=== PATIENT | male | born 1930 | race African-American/Black ===

== ENCOUNTER 2017-04-15 14:51 | Emergency (ER) | payer OTHER ==
[~2017-04-15] VITALS: Ht 167.6 cm; Wt 60.0 kg
[~2017-04-15 14:51] MED LIST: CYCL5TAB PO; DARV PO; DIABETES PILL; [UNRECOGNIZED DRUG - OTHER]
[2017-04-15 14:54] VITALS: BP 172/86; PULSE 88; RESP 12; TEMP 98.3; O2SAT 100
[2017-04-15 16:43] VITALS: BP 183/104; PULSE 92; RESP 20; O2SAT 98
[2017-04-15] MEDS ORDERED: TIMO0.255 EACH EYE (17:27)
[2017-04-15] MEDS ORDERED: GLIM2TAB PO (17:27)
[2017-04-15] MEDS ORDERED: LATA.005%O EACH EYE (17:27)
[2017-04-15] MEDS ORDERED: METF500T PO (17:27)
[2017-04-15] MEDS ORDERED: NORV2.5T PO (17:27)
[2017-04-15] MEDS ORDERED: BENI40TA29 PO (17:27)
[2017-04-15] MEDS ORDERED: ALLO100T PO (17:27)
[2017-04-15 17:53] LABS: BILIRUBIN, URINE NEG (NEG); BLOOD, URINE SMALL (NEG); GLUCOSE,URINE NEG (NEG); KETONE, URINE NEG (NEG); NITRITE,URINE NEG (NEG); PH, URINE 7.5 (5.0-8.5); URINE COLOR LIGHT-YELLOW (YELLW/STRAW); URINE LEUKOCYTE ESTERASE NEG (NEG)
[2017-04-15 17:58] LABS: PROTHROMBIN TIME - PATIENT 10.2 SEC (9.8-11.6)
[2017-04-15 18:02] LABS: AUTOMATED NEUTROPHIL # 2.1 TH/MM3 (1.8-7.7); BASOPHIL % 0.4 % (0.0-2.0); EOSINOPHIL # 0.2 TH/MM3 (0-0.4); EOSINOPHIL % 4.4 % (0.0-4.0); HEMATOCRIT 37.4 % (39.0-51.0); HEMOGLOBIN 12.3 GM/DL (13.0-17.0); LYMPH % 23.9 % (9.0-44.0); LYMPHOCYTE # 0.8 TH/MM3 (1.0-4.8); MEAN CELL VOLUME 93.1 FL (80.0-100.0); MEAN CORPUSCULAR HEMOGLOBIN 30.5 PG (27.0-34.0); MEAN CORPUSCULAR HGB CONC 32.8 % (32.0-36.0); MEAN PLATELET VOLUME 9.4 FL (7.0-11.0); MONO % 12.7 % (0.0-8.0); MONOCYTE # 0.4 TH/MM3 (0-0.9); NEUT % 58.6 % (16.0-70.0); PLATELET COUNT 183 TH/MM3 (150-450); RED BLOOD COUNT 4.02 MIL/MM3 (4.50-5.90); RED CELL DISTRIBUTION WIDTH 14.4 % (11.6-17.2); WHITE BLOOD COUNT 3.5 TH/MM3 (4.0-11.0)
--- NOTE | 2017-04-15 18:06 | PD ---
HPI Chief Complaint: Abnormal Results Time Seen by Provider: 16:33 Travel History International Travel<30 days: No Contact w/Intl Traveler<30days: No Traveled to known affect area: No History of Present Illness HPI 87-year-old male that presents to the ED for evaluation of abnormal results. Per patient he was told that his doctor told him that he had abnormal labs. Per patient something to do with his kidney. Per patient he doesn't remember the name of his doctor and he doesn't know what specifically was wrong. Per patient he was told to come here. The patient had blood work done this week. Denies any urinary or bowel movement issues. No chest pain or shortness of breath. No abdominal pain. No other medical issues. Patient for the most part is about historian. He states that he just had some routine blood work. He denies any other medical issues. History is limited because of the patient' s poor history. PFSH Past Medical History Arthritis: No Asthma: No Blood Disorders: No Anxiety: No Depression: No Heart Rhythm Problems: No Cancer: No High Cholesterol: Yes Chest Pain: No Congestive Heart Failure: No COPD: No Cerebrovascular Accident: No Diabetes: Yes Patient Takes Glucophage: Yes Diminished Hearing: No GERD: No Glaucoma: No Headaches: No Hepatitis: No Hiatal Hernia: No Hypertension: No Kidney Stones: No Myocardial Infarction: No Renal Failure: No Seizures: No Sickle Cell Disease: No Sleep Apnea: No Thyroid Disease: No Ulcer: No Tetanus Vaccination: Unknown Influenza Vaccination: No Past Surgical History Abdominal Surgery: Yes AICD: No Appendectomy: Yes Cardiac Surgery: Yes Ear Surgery: No Endocrine Surgery: No Eye Surgery: No Genitourinary Surgery: Yes Gynecologic Surgery: Yes Oral Surgery: No Pacemaker: No Thoracic Surgery: Yes Other Surgery: Yes Social History Alcohol Use: No Tobacco Use: No Substance Use: No Allergies-Medications (Allergen,Severity, Reaction): Coded Allergies: No Known Allergies (Verified Allergy, Severe, 04/15/17) Reported Meds & Prescriptions Reported Meds & Active Scripts Active Reported Timoptic Opth Drops (Timolol Opth Drops) 0.25 % Soln 1 Drop EACH EYE DAILY Xalatan Opth Drops (Latanoprost) 0.005% Drops 1 Drop EACH EYE HS Benicar (Olmesartan) 40 Mg Tab 40 Mg PO DAILY Metformin (Metformin HCl) 500 Mg Tab 500 Mg PO DAILY With a meal Glimepiride 2 Mg Tab 2 Mg PO DAILY Take with breakfast or first main meal Allopurinol 100 Mg Tab 100 Mg PO DAILY Norvasc (Amlodipine Besylate) 2.5 Mg Tab 2.5 Mg PO DAILY Review of Systems ROS Limitations: Poor Historian Except as stated in HPI: all other systems reviewed are Neg Physical Exam Exam Limitations: Poor Historian Narrative GENERAL: SKIN: Warm and dry. HEAD: Atraumatic. Normocephalic. EYES: Pupils equal and round. No scleral icterus. No injection or drainage. ENT: No nasal bleeding or discharge. Mucous membranes pink and moist. Tongue is midline. No uvula deviation. NECK: Trachea midline. No JVD. CARDIOVASCULAR: Regular rate and rhythm. No murmurs, S3, S4. RESPIRATORY: No accessory muscle use. Clear to auscultation. Breath sounds equal bilaterally. GASTROINTESTINAL: Abdomen soft, non-tender, nondistended. Hepatic and splenic margins not palpable. MUSCULOSKELETAL: Extremities without clubbing, cyanosis, or edema. No obvious deformities. Full range of motion of the upper and lower extremities bilaterally. 2+ pulses bilaterally. NEUROLOGICAL: Awake and alert. No obvious cranial nerve deficits. Motor grossly within normal limits. Five out of 5 muscle strength in the arms and legs. Normal speech. PSYCHIATRIC: Appropriate mood and affect; insight and judgment normal. Data Data Last Documented VS Vital Signs Date Time Temp Pulse Resp B/P (MAP) Pulse Ox O2 Delivery O2 Flow Rate FiO2 04/15/17 19:10 78 16 174/91 (118) 100 Room Air 04/15/17 14:54 98.3 Orders Orders Complete Blood Count With Diff (04/15/17 16:56) Comprehensive Metabolic Panel (04/15/17 16:56) Prothrombin Time / Inr (Pt) (04/15/17 16:56) Act Partial Throm Time (Ptt) (04/15/17 16:56) Urinalysis - C+S If Indicated (04/15/17 16:56) Magnesium (Mg) (04/15/17 16:56) Thyroid Stimulating Hormone (04/15/17 16:56) Iv Access Insert/Monitor (04/15/17 16:56) Ecg Monitoring (04/15/17 16:56) Oximetry (04/15/17 16:56) Sodium Chlor 0.9% 1000 Ml Inj (Ns 1000 M (2/16/18 18:45) Ed Discharge Order (04/15/17 18:48) Labs Laboratory Tests Test 04/15/17 17:10 White Blood Count 3.5 TH/MM3 Red Blood Count 4.02 MIL/MM3 Hemoglobin 12.3 GM/DL Hematocrit 37.4 % Mean Corpuscular Volume 93.1 FL Mean Corpuscular Hemoglobin 30.5 PG Mean Corpuscular Hemoglobin Concent 32.8 % Red Cell Distribution Width 14.4 % Platelet Count 183 TH/MM3 Mean Platelet Volume 9.4 FL Neutrophils (%) (Auto) 58.6 % Lymphocytes (%) (Auto) 23.9 % Monocytes (%) (Auto) 12.7 % Eosinophils (%) (Auto) 4.4 % Basophils (%) (Auto) 0.4 % Neutrophils # (Auto) 2.1 TH/MM3 Lymphocytes # (Auto) 0.8 TH/MM3 Monocytes # (Auto) 0.4 TH/MM3 Eosinophils # (Auto) 0.2 TH/MM3 Basophils # (Auto) 0.0 TH/MM3 CBC Comment DIFF FINAL Differential Comment Prothrombin Time 10.2 SEC Prothromb Time International Ratio 1.0 RATIO Activated Partial Thromboplast Time 26.4 SEC Urine Color LIGHT-YELLOW Urine Turbidity CLEAR Urine pH 7.5 Urine Specific Tyler 1.009 Urine Protein 30 mg/dL Urine Glucose (UA) NEG mg/dL Urine Ketones NEG mg/dL Urine Occult Blood SMALL Urine Nitrite NEG Urine Bilirubin NEG Urine Urobilinogen LESS THAN 2.0 MG/DL Urine Leukocyte Esterase NEG Urine RBC 1 /hpf Urine WBC LESS THAN 1 /hpf Microscopic Urinalysis Comment CULT NOT INDICATED Blood Urea Nitrogen 35 MG/DL Creatinine 1.75 MG/DL Random Glucose 148 MG/DL Total Protein 8.0 GM/DL Albumin 4.1 GM/DL Calcium Level 9.3 MG/DL Magnesium Level 2.5 MG/DL Alkaline Phosphatase 97 U/L Aspartate Amino Transf (AST/SGOT) 26 U/L Alanine Aminotransferase (ALT/SGPT) 38 U/L Total Bilirubin 0.2 MG/DL Sodium Level 139 MEQ/L Potassium Level 4.9 MEQ/L Chloride Level 106 MEQ/L Carbon Dioxide Level 27.8 MEQ/L Anion Gap 5 MEQ/L Estimat Glomerular Filtration Rate 45 ML/MIN Thyroid Stimulating Hormone 3rd Gen 1.690 uIU/ML MDM Medical Decision Making Medical Screen Exam Complete: Yes Emergency Medical Condition: Yes Medical Record Reviewed: Yes Interpretation(s) CBC & BMP Diagram 04/15/17 17:10 Total Protein 8.0, Albumin 4.1, Calcium Level 9.3, Magnesium Level 2.5, Alkaline Phosphatase 97, Aspartate Amino Transf (AST/SGOT) 26, Alanine Aminotransferase (ALT/SGPT) 38, Total Bilirubin 0.2 UA negative Differential Diagnosis Abnormal labs versus kidney failure versus normal exam Narrative Course 87-year-old male that presents to the ED for evaluation of abnormal labs. Patient was properly examined and was found to have signs and symptoms of unclear etiology at this time. Patient is not a good historian and the only thing he tells me that he was told to get abnormal labs by a doctor who he does not remember the name of and they wanted him to come here for "kidney issue ". I suspect that what she was call for was for abnormal BUN and creatinine. Unclear of the causes patient himself is somewhat of a poor historian and appears do not really know his medical history. Labs ordered and showed mild kidney disease. Patient has no symptoms. Case was discussed in my attending Dr. Dobbins who recommends the patient can follow-up outpatient. Patient will be given one bolus of fluid here. Patient understands reasons to come back. Patient was given information for outpatient membership sales advisor. See ED worsening symptoms. Follow with PCP. Diagnosis Primary Impression: Kidney disease Referrals: Milagro Ernandez MD Patient Instructions: General Instructions Additional Instructions: Drink plenty of fluids. Follow up with PCP. See ED worsening symptoms. Follow -up with membership sales advisor. Med/Other Pt SpecificInfo: No Meds Exist/No RX given Disposition: 01 DISCHARGE HOME Condition: Stable Ishan Brandt Apr 15, 2017 18:06
[2017-04-15 18:18] LABS: ALKALINE PHOSPHATASE 97 U/L (45-117); TOTAL BILIRUBIN ADULT 0.2 MG/DL (0.2-1.0)
[2017-04-15 18:30] LABS: ALBUMIN 4.1 GM/DL (3.4-5.0); ALT (GPT) 38 U/L (12-78); AST (GOT) 26 U/L (15-37); BICARBONATE 27.8 MEQ/L (21.0-32.0); BLOOD UREA NITROGEN 35 MG/DL (7-18); CALCIUM 9.3 MG/DL (8.5-10.1); CHLORIDE 106 MEQ/L (98-107); CREATININE 1.75 MG/DL (0.60-1.30); GLOMERULAR FILTRATION RATE 45 ML/MIN (>89); GLUCOSE,RANDOM 148 MG/DL (74-106); MAGNESIUM 2.5 MG/DL (1.5-2.5); SODIUM (NA) 139 MEQ/L (136-145)
[2017-04-15] MEDS ORDERED: SODIUM CHLOR 0.9% 1000 ML INJ 1,000 ML IV ONE (18:45)
[2017-04-15 19:10] VITALS: BP 174/91; PULSE 78; RESP 16; O2SAT 100
[2017-04-15 20:19] VITALS: O2SAT 97
== END 2017-04-15 20:29 | disposition home or self-care (01) ==
LOC: NEPC 14:51
DX: N28.9 Disorder of kidney and ureter, unspecified (principal); E78.00 Pure hypercholesterolemia, unspecified; E11.9 Type 2 diabetes mellitus without complications; Z79.84 Long term (current) use of oral hypoglycemic drugs
CPT/HCPCS: 80053; 81001; 83735; 84443; 85025; 85610; 85730; 96360; 99284; J7030